=== PATIENT | male | born 1940 | race Caucasian/White ===

== ENCOUNTER 2020-02-15 00:06 | Inpatient (IN) ==
[2020-02-16] MEDS ORDERED: ONDANSETRON 4 MG/2 ML VIAL IV PRN (03:24)
[2020-02-16] MEDS ORDERED: ACETAMINOPHEN 325 MG TABLET PO PRN (03:24)
[2020-02-16 06:58] LABS: Hematocrit 35.8 VOL% (42.0-52.0); Hemoglobin 11.3 GM/DL (14.0-18.0)
[2020-02-16 06:59] LABS: Basophils # 0.1 10*3/uL (0.0-0.2); Basophils % 1.2 % (0.0-0.8); Eosinophils # 0.2 10*3/uL (0.0-0.87); Eosinophils % 3.4 % (0.00-10.9); Hemoglobin 11.3 GM/DL (14.0-18.0); Immature Granulocytes % 0.3 %; Immature Granulocytes Absolute 0.02 #; Lymphocytes # 1.1 10*3/uL (1.4-4.0); Lymphocytes % 18.5 % (21.2-54.2); Mean Corpuscular HGB Conc 31.4 GM/DL (32-36); Mean Corpuscular Volume 92.8 FL (87-102); Monocytes % 9.7 % (1.7-12.7); Neutrophils % 66.9 % (38.7-73.9); Platelet Count 139 T/CUMM (130-400); Red Blood Count 3.88 MC/CUMM (3.8-5.5); Red Cell Distribution Width 13.4 % (9.3-17.3)
[2020-02-16 07:09] LABS: INR 1.6; PT Patient Result 16.8 SECS (9.8-11.9)
[2020-02-16 07:15] LABS: Albumin 3.2 G/DL (3.4-5.0); Calcium 7.9 MG/DL (8.5-10.1); Osmolality,Calculated 280.4 MOS/KG (273-304); Total Protein 6.1 G/DL (6.4-8.3)
[2020-02-16 08:13] LABS: Hematocrit 35.3 VOL% (42.0-52.0); Hemoglobin 11.4 GM/DL (14.0-18.0)
[2020-02-16] MEDS: FINASTERIDE 5 MG TABLET PO SCH (08:42)
[2020-02-16] MEDS: AMIODARONE 200 MG TABLET PO SCH (08:42)
[2020-02-16] MEDS: POTASSIUM CHLORIDE 10 MEQ TABLET PO SCH (08:42)
[2020-02-16] MEDS: PANTOPRAZOLE 40 MG TABLET PO SCH (08:42)
[2020-02-16] MEDS: carvediloL 6.25 MG TABLET PO SCH ×2 (08:42→17:01)
[2020-02-16] MEDS: CYANOCOBALAMIN 500 MCG TABLET PO SCH (08:43)
[2020-02-16] MEDS: TAMSULOSIN 0.4 MG CAPSULE PO SCH ×2 (08:43→20:51)
[2020-02-16] MEDS: SACUBITRIL/VALSARTAN 49-51 MG TABLET PO SCH ×2 (08:43→20:51)
[2020-02-16] MEDS: EZETIMIBE 10 MG TABLET PO SCH (08:43)
[2020-02-16 14:46] LABS: Hematocrit 32.8 VOL% (42.0-52.0); Hemoglobin 10.6 GM/DL (14.0-18.0)
[2020-02-16 20:44] LABS: Hematocrit 32.4 VOL% (42.0-52.0); Hemoglobin 10.3 GM/DL (14.0-18.0)
[2020-02-17 03:43] LABS: Basophils # 0.1 10*3/uL (0.0-0.2); Eosinophils # 0.2 10*3/uL (0.0-0.87); Eosinophils % 3.7 % (0.00-10.9); Hematocrit 33.5 VOL% (42.0-52.0); Hemoglobin 10.4 GM/DL (14.0-18.0); Immature Granulocytes % 0.3 %; Immature Granulocytes Absolute 0.02 #; Lymphocytes # 1.3 10*3/uL (1.4-4.0); Lymphocytes % 20.4 % (21.2-54.2); Mean Corpuscular Volume 95.2 FL (87-102); Mean Platelet Volume 11.7 FL (9.6-12.0); Monocytes % 8.5 % (1.7-12.7); Neutrophils % 66.1 % (38.7-73.9); Platelet Count 133 T/CUMM (130-400); Red Blood Count 3.52 MC/CUMM (3.8-5.5); Red Cell Distribution Width 13.4 % (9.3-17.3); White Blood Count 6.1 T/CUMM (4-12)
[2020-02-17 03:57] LABS: INR 1.3; PT Patient Result 13.3 SECS (9.8-11.9)
[2020-02-17 04:09] LABS: Calcium 7.6 MG/DL (8.5-10.1); Osmolality,Calculated 275.7 MOS/KG (273-304)
[2020-02-17 08:23] LABS: Hemoglobin 10.9 GM/DL (14.0-18.0)
[2020-02-17] MEDS ORDERED: PHENYLEPHRINE 1 MG/10 ML SYRINGE IV ONE (10:00)
[2020-02-17] MEDS ORDERED: LIDOCAINE 2% 5 ML VIAL ONE (10:00)
[2020-02-17] MEDS ORDERED: ETOMIDATE 20 MG/10 ML VIAL IV ONE (10:00)
[2020-02-17] MEDS ORDERED: propofoL 200 MG/20 ML VIAL IV ONE (10:00)
[2020-02-17] MEDS: carvediloL 6.25 MG TABLET PO SCH ×2 (13:02→17:55)
[2020-02-17] MEDS: SACUBITRIL/VALSARTAN 49-51 MG TABLET PO SCH ×2 (13:02→20:43)
[2020-02-17] MEDS: POTASSIUM CHLORIDE 10 MEQ TABLET PO SCH (13:14)
[2020-02-17] MEDS: CYANOCOBALAMIN 500 MCG TABLET PO SCH (13:14)
[2020-02-17] MEDS: TAMSULOSIN 0.4 MG CAPSULE PO SCH ×2 (13:15→20:43)
[2020-02-17] MEDS: AMIODARONE 200 MG TABLET PO SCH (13:15)
[2020-02-17] MEDS: PANTOPRAZOLE 40 MG TABLET PO SCH (13:15)
[2020-02-17] MEDS: EZETIMIBE 10 MG TABLET PO SCH (13:15)
[2020-02-17] MEDS: FINASTERIDE 5 MG TABLET PO SCH (13:18)
[2020-02-17 15:02] LABS: Hemoglobin 10.8 GM/DL (14.0-18.0)
[2020-02-17 20:46] LABS: Hematocrit 31.4 VOL% (42.0-52.0); Hemoglobin 10.1 GM/DL (14.0-18.0)
[2020-02-18 04:21] LABS: Hemoglobin 10.4 GM/DL (14.0-18.0)
[2020-02-18 04:34] LABS: INR 1.1; PT Patient Result 11.9 SECS (9.8-11.9)
[2020-02-18] MEDS: SACUBITRIL/VALSARTAN 49-51 MG TABLET PO SCH (08:42)
[2020-02-18] MEDS: CYANOCOBALAMIN 500 MCG TABLET PO SCH (08:42)
[2020-02-18] MEDS: FINASTERIDE 5 MG TABLET PO SCH (08:42)
[2020-02-18] MEDS: EZETIMIBE 10 MG TABLET PO SCH (08:42)
[2020-02-18] MEDS: PANTOPRAZOLE 40 MG TABLET PO SCH (08:43)
[2020-02-18] MEDS: carvediloL 6.25 MG TABLET PO SCH (08:43)
[2020-02-18] MEDS: AMIODARONE 200 MG TABLET PO SCH (08:43)
[2020-02-18] MEDS: POTASSIUM CHLORIDE 10 MEQ TABLET PO SCH (08:43)
[2020-02-18] MEDS: TAMSULOSIN 0.4 MG CAPSULE PO SCH (08:43)
[2020-02-18 08:56] LABS: Hematocrit 33.2 VOL% (42.0-52.0); Hemoglobin 10.5 GM/DL (14.0-18.0)
[2020-02-18 12:45] VITALS: BP 96/61
== END 2020-02-18 15:14 | disposition home or self-care (01) | DRG 813 ==
LOC: N.3E 02-16 02:04 → SUATTDRO 02-16 02:04 → N.4E 02-17 12:52
PROVIDERS: ADMIT Internal Medicine; ATTEND Internal Medicine Geriatric Medicine